=== PATIENT | male | born 1980 | race African-American/Black ===

== ENCOUNTER 2025-05-01 16:59 | Inpatient (IN) | payer MEDICAID, OTHER ==
[~2025-05-01] VITALS: Ht 177.8 cm; Wt 68.9 kg
[~2025-05-01 16:59] MED LIST: ALBU6.7H15 INH; AMOX1TAB16 MT; ASPI-1160 PO; CARV6.2548 MT; CLOP75TA15 PO; FURO-151 MT; LIP40 PO; LOSA25TA26 MT; METH4TAB95 MT
[2025-05-01 17:45] LABS: BASOPHILS % 1.3 % (0.0-2.0); DIFFERENTIAL COMMENT 0; EOSINOPHILS % 9.8 % (0.0-5.0); HEMOGLOBIN. 12.8 g/dL (14.0-18.0); LYMPHOCYTES % 17.3 % (20.0-50.0); MEAN CORPUSCULAR HEMOGLOBIN 29.9 pg (28.0-32.0); MEAN CORPUSCULAR VOLUME 90.6 fL (80.0-94.0); MEAN PLATELET VOLUME 7.5 fl (7.4-10.4); MONOCYTES % 6.3 % (2.0-8.0); NEUTROPHILS % 65.3 % (40.0-76.0); PLATELET 281 x1000/uL (130-400); RED CELL DISTRIBUTION WIDTH 14.6 % (11.6-14.6); WHITE BLOOD COUNT 4.7 x1000/uL (4.5-11.0)
[2025-05-01 17:50] LABS: CHLORIDE 108 mEq/L (98-107); POTASSIUM 4.2 mEq/L (3.5-5.1); SODIUM 140 mEq/L (136-145)
[2025-05-01 17:51] LABS: CALCIUM 9.6 mg/dL (8.7-10.4); CARBON DIOXIDE 24 mEq/L (21-32)
[2025-05-01 17:56] LABS: CREATININE 1.3 mg/dL (0.6-1.3); GLUCOSE 104 mg/dL (70-105); UREA NITROGEN BLOOD 17 mg/dL (9-23)
[2025-05-01 18:08] LABS: TROPONIN I HIGH SENSITIVITY 611 ng/L (3.0-53)
[2025-05-01 18:17] VITALS: PULSE 103; RESP 20; O2SAT 98
[2025-05-01] MEDS: IPRATROPIUM BROMIDE (0.02%) 0.5MG/2.5ML NEB HHN STA (18:17)
[2025-05-01] MEDS: ALBUTEROL (0.083%) 2.5MG/3ML NEB HHN STA (18:17)
[2025-05-01] MEDS: ASPIRIN 325MG EC TABLET PO ONE (19:01)
[2025-05-01] MEDS: FUROSEMIDE 40MG/4ML VIAL IVP ONE (19:01)
[2025-05-01 21:30] VITALS: BP 139/100; PULSE 96; RESP 17; TEMP 36.7; O2SAT 98
[2025-05-01 23:49] VITALS: BP 139/100; PULSE 79; RESP 19; TEMP 36.7
[2025-05-02] VITALS (7 sets, daily range): BP systolic 115–135; BP diastolic 88–96; PULSE 77–100; RESP 13–18; TEMP 36.3–36.9; O2SAT 94–100
[2025-05-02 06:27] LABS: BASOPHILS % 1.1 % (0.0-2.0); DIFFERENTIAL COMMENT 0; EOSINOPHILS % 10.5 % (0.0-5.0); HEMATOCRIT. 36.9 % (42.0-52.0); HEMOGLOBIN. 12.3 g/dL (14.0-18.0); LYMPHOCYTES % 31.4 % (20.0-50.0); MEAN CORPUSCULAR HEMOGLOBIN 30.2 pg (28.0-32.0); MEAN CORPUSCULAR HGB CONC 33.2 g/dL (31.0-37.0); MEAN CORPUSCULAR VOLUME 90.9 fL (80.0-94.0); MEAN PLATELET VOLUME 7.7 fl (7.4-10.4); MONOCYTES % 6.2 % (2.0-8.0); NEUTROPHILS % 50.8 % (40.0-76.0); PLATELET 280 x1000/uL (130-400); RED BLOOD CELL COUNT 4.06 mill/uL (4.7-6.1); RED CELL DISTRIBUTION WIDTH 14.6 % (11.6-14.6); WHITE BLOOD COUNT 4.5 x1000/uL (4.5-11.0)
[2025-05-02 06:30] LABS: CHLORIDE 103 mEq/L (98-107); POTASSIUM 4.2 mEq/L (3.5-5.1); SODIUM 139 mEq/L (136-145)
[2025-05-02 06:31] LABS: CARBON DIOXIDE 28 mEq/L (21-32)
[2025-05-02 06:36] LABS: CREATININE 1.3 mg/dL (0.6-1.3); GLUCOSE 92 mg/dL (70-105); UREA NITROGEN BLOOD 17 mg/dL (9-23)
[2025-05-02] MEDS: BUDESONIDE 0.5MG/2ML NEB HHN SCH (08:39)
[2025-05-02] MEDS: ALBUTEROL (0.083%) 2.5MG/3ML NEB HHN SCH (08:39)
[2025-05-02] MEDS: CLOPIDOGREL 75MG TABLET PO SCH (08:47)
[2025-05-02] MEDS: ASPIRIN 81MG EC TABLET PO SCH (08:47)
[2025-05-02] MEDS: FUROSEMIDE 40MG/4ML VIAL IVP SCH (08:48)
[2025-05-02] MEDS: LOSARTAN 25 MG TABLET PO SCH (08:48)
[2025-05-02] MEDS: CARVEDILOL 6.25 MG TABLET PO SCH (08:48)
[2025-05-02 17:59] LABS: *AMPHETAMINES SCREEN URINE PRESUMPTIVE POSITIVE (NEGATIVE); *BARBITURATES SCREEN URINE NEGATIVE (NEGATIVE); *BENZODIAZEPINES SCREEN URINE NEGATIVE (NEGATIVE); *COCAINE SCREEN URINE NEGATIVE (NEGATIVE); CANNABINOID URINE SCREEN PRESUMPTIVE POSITIVE (NEGATIVE); METHADONE URINE SCREEN NEGATIVE (NEGATIVE); OPIATES URINE SCREEN NEGATIVE (NEGATIVE); PHENCYCLIDINE URINE SCREEN NEGATIVE (NEGATIVE)
[2025-05-02 18:00] LABS: ECSTASY MDMA SCREEN URINE NEGATIVE (NEGATIVE)
[2025-05-02] MEDS: ATORVASTATIN CALCIUM 40MG TABLET PO SCH (22:05)
[2025-05-02 22:12] LABS: TROPONIN I HIGH SENSITIVITY 144 ng/L (3.0-53)
[2025-05-03] VITALS (7 sets, daily range): BP systolic 103–113; BP diastolic 35–85; PULSE 74–92; RESP 18–20; TEMP 36.5–36.8; O2SAT 97–100
[2025-05-03] MEDS: ENOXAPARIN 40MG/0.4ML SYR SUBCUT SCH (09:56)
[2025-05-04] VITALS (7 sets, daily range): BP systolic 103–110; BP diastolic 69–86; PULSE 82–94; RESP 17–20; TEMP 36.5–37; O2SAT 97–99
[2025-05-04] MEDS: SPIRONOLACTONE 25MG TABLET PO SCH (08:43)
[2025-05-04] MEDS ORDERED: ALBU18HF2 IH (15:36)
[2025-05-04] MEDS ORDERED: COR6 MT (15:36)
[2025-05-04] MEDS ORDERED: LOSA25TA26 MT (15:36)
[2025-05-04] MEDS ORDERED: ATOR40TA70 MT (15:36)
[2025-05-04] MEDS ORDERED: CLOP-31 MT (15:36)
[2025-05-04] MEDS ORDERED: SPIR25TA6 MT (15:36)
[2025-05-04] MEDS ORDERED: FURO-151 MT (15:36)
[2025-05-04] MEDS ORDERED: ASPI-1497 MT (15:36)
== END 2025-05-04 17:15 | disposition home or self-care (01) | DRG 194 ==
LOC: ER 16:59 → EDBEDREQSVC 19:46 → EDBEDREQTM 19:46 → EDBEDREQ 19:46 → ENRESERV 20:18 → 5WST 21:13
PROVIDERS: ADMIT Internal Medicine; ATTEND Internal Medicine
DX: I11.0 Hypertensive heart disease with heart failure (principal); I21.4 Non-ST elevation (NSTEMI) myocardial infarction; I42.9 Cardiomyopathy, unspecified; E11.9 Type 2 diabetes mellitus without complications; D64.9 Anemia, unspecified; F15.90 Other stimulant use, unspecified, uncomplicated; I50.23 Acute on chronic systolic (congestive) heart failure; F17.210 Nicotine dependence, cigarettes, uncomplicated; J44.9 Chronic obstructive pulmonary disease, unspecified; I34.0 Nonrheumatic mitral (valve) insufficiency; I25.2 Old myocardial infarction; Z86.73 Personal history of transient ischemic attack (TIA), and cerebral infarction without residual deficits; Z91.013 Allergy to seafood; Z71.51 Drug abuse counseling and surveillance of drug abuser
CPT/HCPCS: 36415; 71045; 80048; 80305; 83880; 84484; 85025; 93005; 93306; 94070; 94640; 94664; 98960; 99285; A4606; J1650; J1940; J7626